=== PATIENT | female | born 1975 | race Caucasian/White ===

== ENCOUNTER 2016-12-12 17:05 | Emergency (ER) | payer SELFPAY ==
[~2016-12-12] VITALS: Ht 162.6 cm; Wt 62.6 kg
[2016-12-12 21:17] LABS: BASOPHIL % 0.8 % (0-2); PLATELET COUNT 263 x10^3mcL (130-400)
[2016-12-12 21:18] LABS: RED CELL DISTRIBUTION WIDTH 15.2 % (11.5-14.5)
[2016-12-12 21:23] LABS: microscopic required? YES; urine erythrocyte TRACE (NEGATIVE)
[2016-12-12 22:18] VITALS: BP 128/75
== END 2016-12-12 22:18 | disposition home or self-care (01) ==
LOC: ED 17:05
PROVIDERS: Emergency Medicine Emergency Medical Services
DX: O20.0 Threatened abortion (principal); E11.9 Type 2 diabetes mellitus without complications; Z3A.01 Less than 8 weeks gestation of pregnancy
CPT/HCPCS: 36415